=== PATIENT | male | born 1980 | race Caucasian/White ===

== ENCOUNTER 2018-06-02 17:02 | Emergency (ER) | payer BC ==
[2018-06-02 17:51] VITALS: BP 110/77
--- NOTE | 2018-06-02 17:56 | UC ---
Shoulder Pain HPI - HPI Summary HPI Summary: Patient presents emergency Department reporting 3 weeks of left shoulder pain. Patient states he only has pain when he abduction greater than 90. Patient states he gets a sharp pain on the lateral aspect of the shoulder. No paresthesias. No arm weakness. Patient without any pain in the elbow or the wrist. Patient is right hand dominant. No analgesia taken. Patient without previous injury to this shoulder, no physical therapy or procedures. Pt denies injury. Denies repetitive activity / sport Pt's medications reviewed this visit - History of Current Complaint Chief Complaint: UCUpperExtremity Stated Complaint: LEFT SHOULDER PAIN Time Seen by Provider: 06/02/18 17:43 Hx Obtained From: Patient Onset/Duration: Gradual Onset Timing: Intermittent Episode Lasting Severity Initially: Mild Pain Intensity: 0 - Allergies/Home Medications Allergies/Adverse Reactions: Allergies Allergy/AdvReac Type Severity Reaction Status Date / Time grass, mold Allergy Difficulty Uncoded 06/02/18 17:41 Breathing PMH/Surg Hx/FS Hx/Imm Hx Previously Healthy: Yes - Surgical History Surgical History: Yes Surgery Procedure, Year, and Place: HERNIA REPAIR - Family History Known Family History: Positive: Non-Contributory - Social History Occupation: Employed Full-time Lives: With Family Alcohol Use: Occasionally Alcohol Amount: weekends 5 drinks Substance Use Type: None Smoking Status (MU): Never Smoked Tobacco Review of Systems All Other Systems Reviewed And Are Negative: Yes Skin: Positive: Negative Musculoskeletal: Positive: Other: - left shoulder pain Psychological: Positive: Negative Physical Exam - Summary Physical Exam Summary: Vital Signs Reviewed: Yes A+Ox3, no distress Eyes: Conjunctiva Clear ENT: Hearing grossly normal neck: supple Respiratory: Positive: No respiratory distress, No accessory muscle use CTA throghotu no w/r/r Cardiovascular: skin color reflect adequate perfusion, 2+ radial, ulnar CBT < 2 sec Musculoskeletal Exam: Full AROM C spine no pain c/t/l/s spine + TTP lateral, superior aspect of left shoulder. + pain with active abduction > 90, + passive ROM > 90. + flex/ext elbow, + pronate/supinate 5/5 flex/ext wrist Neurological: Positive: Alert, ambulatory without difficulty 5/5 grasp + thumb up, a ok, finger spread, finger cross Psychological: Positive: Normal Response To Family Skin: Positive: no rash, no ecchymosis. no rash Triage Information Reviewed: Yes Vital Signs: Initial Vital Signs Temp 97.8 F 06/02/18 17:43 Pulse 74 06/02/18 17:43 Resp 18 06/02/18 17:43 BP 110/77 06/02/18 17:43 Pulse Ox 100 06/02/18 17:43 Re-Evaluation - Re-Evaluation First Eval Comment: reviewed xray with pt - no acute process note on my exam - pt aware wet read. declined sling. stretch. ice. motrin. sports med f/u. pt comfortable and in agreement with plan Shoulder Course/Dx - Course Course Of Treatment: Patient with progressive discomfort in his left lateral shoulder. Pain is in the superior lateral aspect pain is worse with abduction greater than 90. Passive range of motion is improved. We'll check x-ray to look for spur. Anticipate we'll place in sling. Motrin/Tylenol. Ice. We'll refer to sports medicine. Discussed with patient may have an ultrasound, steroid injection, referral to physical therapy. Patient comfortable in agreement with plan. - Differential Dx/Diagnosis Provider Diagnosis: Rotator cuff tendinitis Discharge - Sign-Out/Discharge Documenting (check all that apply): Patient Departure All imaging exams completed and their final reports reviewed: No - Discharge Plan Condition: Stable Disposition: HOME Patient Education Materials: Rotator Cuff Tendinitis (ED) Referrals: [facility] [Provider Group] No Primary Care Phys,NOPCP [Primary Care Provider] - Additional Instructions: - It is recommended you alternate ibuprofen (Advil, motrin) 600mg and tylenol ( 1000mg) every 3 hours for pain. Take with food. Do NOT take for more than 4-5 - apply ice to your shoulder, 15 minutes at a time, 2-3 times a day - Contact the sports medicine group tomorrow to schedule a follow-up appointment this week - you can request an appointment in the [place] office. If you develop arm weakness, chest pain, shortness of breath or any other concerns it is recommended you go to the emergency department for further e evaluation and treatment Your imaging studies were not reviewed by a radiologist serena. If the radiologist identifies a different finding tomorrow, you will receive a call from a care horses or mules teamster tomorrow. - Billing Disposition and Condition Condition: STABLE Disposition: Home
--- NOTE | 2018-06-03 08:18 | UC ---
- Progress Note Progress Note: Patient Name: ISABELLE SANCHEZ JR Medical Record#: [id number] Ordering Physician: Olive Portillo MD Acct.#: [id number] : 1980 Age: 37 Sex: M [facility]: [facility] Exam Date: 06/02/181810 ADM Status: [facility] Order Information: SHOULDER LEFT 2+ VWS Accession Number: [id number] CPT: 52127 HISTORY: progressive pain sup/later shoulder with abduction COMPARISONS: None VIEWS: 4 , Frontal internal rotation, external rotation, outlet, and axillary views of the left shoulder FINDINGS: BONE DENSITY: Normal. BONES: There is no displaced fracture. JOINTS: There is no arthropathy. ALIGNMENT: There is no dislocation. SOFT TISSUES: Unremarkable. OTHER FINDINGS: None. IMPRESSION: NO ACUTE OSSEOUS INJURY. IF SYMPTOMS PERSIST, RECOMMEND REPEAT IMAGING. R0 Preliminary Imaging Read R0 <Electronically signed by Adan Merino MD in [place]> 06/03/18743 Dictated By: Adan Merino MD Dictated Date/Time: 06/03/18743 Transcribed Date/Time: 06/03/18743 Copy to: CC:Olive Portillo MD; No Primary Care Phys,NOPCP Imaging - [facility] Imaging - [facility] [address] [place] [address] This report is only to be considered final once signed by the Provider(s) as displayed in the "<Electronically Signed by >" field (s). Absence of a signature indicates the report is in a draft status and still needs to be finalized. In the event this document was created by someone other than the signing Provider, the individual initiating the document will be listed in the "Entered by:" or "Dictated by:" pichardo. 1 of 2 Re-Evaluation - Re-Evaluation First Eval Comment: reviewed xray with pt - no acute process note on my exam - pt aware wet read. declined sling. stretch. ice. motrin. sports med f/u. pt comfortable and in agreement with plan Course/Dx - Diagnoses Provider Diagnoses: Rotator cuff tendinitis Discharge - Sign-Out/Discharge Documenting (check all that apply): Post-Discharge Follow Up All imaging exams completed and their final reports reviewed: Yes - Discharge Plan Condition: Stable Disposition: HOME Patient Education Materials: Rotator Cuff Tendinitis (ED) Referrals: [facility] [Provider Group] No Primary Care Phys,NOPCP [Primary Care Provider] - Additional Instructions: - It is recommended you alternate ibuprofen (Advil, motrin) 600mg and tylenol ( 1000mg) every 3 hours for pain. Take with food. Do NOT take for more than 4-5 - apply ice to your shoulder, 15 minutes at a time, 2-3 times a day - Contact the sports medicine group tomorrow to schedule a follow-up appointment this week - you can request an appointment in the [place] office. If you develop arm weakness, chest pain, shortness of breath or any other concerns it is recommended you go to the emergency department for further e evaluation and treatment Your imaging studies were not reviewed by a radiologist serena. If the radiologist identifies a different finding tomorrow, you will receive a call from a care produce team lead tomorrow. - Billing Disposition and Condition Condition: STABLE Disposition: Home
== END 2018-06-02 19:01 | disposition home or self-care (01) ==
LOC: UCCORT 17:02
DX: M75.102 Unspecified rotator cuff tear or rupture of left shoulder, not specified as traumatic (principal)
CPT/HCPCS: 99201; G0463

== ENCOUNTER 2019-01-02 08:06 | Emergency (ER) | payer BC ==
[2019-01-02 08:21] VITALS: BP 143/72
--- NOTE | 2019-01-02 08:34 | UC ---
General HPI - HPI Summary HPI Summary: pain and swelling to L lower gum x 2 days. site of wisdom tooth removal. wonders if something, food is caught in the gum. also feels like a piece of tooth may but under the gum because he poke it with a toothpick and felt like it hit a piece of tooth. took some IB - History of Current Complaint Chief Complaint: UCDentalProblem Stated Complaint: ORAL COMPLAINT Time Seen by Provider: 01/02/19 08:27 Hx Obtained From: Patient Onset/Duration: Gradual Onset Timing: Constant Pain Intensity: 5 Aggravating: chewing Associated Signs & Symptoms: Negative: Fever - Allergy/Home Medications Allergies/Adverse Reactions: Allergies Allergy/AdvReac Type Severity Reaction Status Date / Time grass, mold Allergy Difficulty Uncoded 01/02/19 08:21 Breathing Home Medications: Home Medications Claritin D 1 tab PO DAILY PRN 01/02/19 [History Confirmed 01/02/19] PMH/Surg Hx/FS Hx/Imm Hx Respiratory History: Asthma - Surgical History Surgical History: Yes Surgery Procedure, Year, and Place: Right HERNIA REPAIR - Family History Known Family History: Positive: Non-Contributory - Social History Alcohol Use: Occasionally Alcohol Amount: weekends 5 drinks Substance Use Type: None Smoking Status (MU): Never Smoked Tobacco Review of Systems All Other Systems Reviewed And Are Negative: No Constitutional: Negative: Fever Skin: Negative: Rash ENT: Positive: Dental Pain - L lower gum with swelling. Negative: Sore Throat, Ear Ache, Sinus Congestion Neurological: Negative: Headache Physical Exam Triage Information Reviewed: Yes Appearance: Well-Appearing Vital Signs: Initial Vital Signs Temp 97.6 F 01/02/19 08:17 Pulse 72 01/02/19 08:17 Resp 16 01/02/19 08:17 BP 143/72 01/02/19 08:17 Pulse Ox 99 01/02/19 08:17 Vital Signs Reviewed: Yes Eyes: Positive: Conjunctiva Clear ENT: Positive: Pharynx normal, TMs normal. Negative: Nasal congestion, Nasal drainage Dental: Positive: Other: - L lower posterior gum is mildly swollen, tender and not fluctuant at site of old extraction of wisdom tooth. Neck: Positive: Supple, Nontender, No Lymphadenopathy Respiratory: Positive: No respiratory distress Cardiovascular: Positive: RRR Musculoskeletal: Positive: ROM Intact Neurological: Positive: Alert Psychological: Positive: Age Appropriate Behavior Skin Exam: Normal Skin: Negative: Rashes Course/Dx - Differential Dx - Multi-Symptom Differential Diagnoses: Other - no concern for ludwigs angina. nothing to I & D. pt agrees to stop motrin. will tx with naprosyn and amoxicillin plus refer to an oral surgeon. - Diagnoses Provider Diagnosis: Gingival abscess Discharge - Sign-Out/Discharge Documenting (check all that apply): Patient Departure All imaging exams completed and their final reports reviewed: No Studies - Discharge Plan Condition: Stable Disposition: HOME Prescriptions: Amoxicillin PO (*) [Amoxicillin 875 MG (*)] 875 mg PO BID 10 Days #20 tab Naproxen [Naprosyn 500 mg tab] 500 mg PO BID PRN #14 tablet PRN Reason: Pain (Dental) Patient Education Materials: Dental Abscess (ED) Referrals: Ish Tijerina DMD [Doctor of Dental Medicine] - - Billing Disposition and Condition Condition: STABLE Disposition: Home
== END 2019-01-02 08:42 | disposition home or self-care (01) ==
LOC: UCCORT 08:06
DX: K05.219 Aggressive periodontitis, localized, unspecified severity (principal)
CPT/HCPCS: 99212; G0463